=== PATIENT | male | born 1990 | race Caucasian/White ===

== ENCOUNTER 2019-09-01 18:15 | Emergency (ER) | payer OTHER ==
[~2019-09-01] VITALS: Ht 160 cm; Wt 56.9 kg
[2019-09-01] MEDS ORDERED: naproxen 500mg tablet PO ONE (20:50)
[2019-09-01] MEDS ORDERED: albuterol 2.5 MG/3 ML nebule NEB ONE (21:20)
[2019-09-01] MEDS ORDERED: ALBU6.7H9 INH (22:15)
[2019-09-01] MEDS ORDERED: AZIT250T2 PO (22:15)
[2019-09-01] MEDS ORDERED: dexamethasone 4mg tablet PO ONE (22:15)
[2019-09-01 23:12] VITALS: BP 114/72
== END 2019-09-01 23:15 | disposition home or self-care (01) ==
LOC: ER 18:16
DX: J40 Bronchitis, not specified as acute or chronic (principal); M25.511 Pain in right shoulder; F17.200 Nicotine dependence, unspecified, uncomplicated; Z88.6 Allergy status to analgesic agent; Z88.5 Allergy status to narcotic agent; Z79.899 Other long term (current) drug therapy
CPT/HCPCS: 71046; 93005; 94640; 94760; 99283; 99284